=== PATIENT | male | born 2005 | race Hispanic/Latino ===

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

== ENCOUNTER 2025-04-24 10:40 | Emergency (ER) | payer OTHER, SELFPAY ==
[2025-04-24] MEDS ORDERED: Ondansetron PF 4 MG/2 ML Vial ONE (10:44)
[2025-04-24 11:12] LABS: ALT (SGPT) 14 U/L (Less than 45); AST (SGOT) 24 U/L (11-34); Albumin 4.4 g/dL (3.1-4.5); Alkaline Phosphatase 50 U/L (50-130); Anion Gap 18 mmol/L (10-20); BUN (Urea Nitrogen) 15 mg/dL (8.4-21.0); Bilirubin, Total 0.4 mg/dL (0.3-1.2); Calc. Creatinine Clearance 0 mL/min (70-130); Calcium 9.1 mg/dL (7.8-10.44); Carbon Dioxide 18 mmol/L (22-29); Chloride 106 mmol/L (98-107); Globulin 2.9 g/dL (2.4-3.5); Glucose 92 mg/dL (70-105); Potassium 3.2 mmol/L (3.5-5.1); Sodium 139 mmol/L (136-145)
[2025-04-24 11:20] LABS: Hematocrit 35.7 % (42.0-52.0); Hemoglobin 13.2 g/dL (14.0-18.0); Mean Corpuscular Hemoglobin 29.5 pg (25.0-35.0); Mean Corpuscular Volume 79.6 fl (78.0-98.0); Red Blood Cell (RBC) Count 4.48 mill/uL (4.00-5.20); White Blood Cell (WBC) Count 6.5 10x3/uL (4.8-10.8)
[2025-04-24 11:21] LABS: Platelet Count 220 10x3/uL (130-400)
[2025-04-24 11:22] LABS: Platelet Adequacy Comment Appears Adequate
== END 2025-04-24 12:11 | disposition short-term general hospital (02) ==
LOC: NAV ERS 10:40
DX: T21.23XA Burn of second degree of upper back, initial encounter (principal); T22.232A Burn of second degree of left upper arm, initial encounter; T23.222A Burn of second degree of single left finger (nail) except thumb, initial encounter; T31.0 Burns involving less than 10% of body surface; X08.8XXA Exposure to other specified smoke, fire and flames, initial encounter; Y99.0 Civilian activity done for income or pay
CPT/HCPCS: 36415; 71046; 80053; 85025; 90715; 96374; 96375; 96376; J2270; J2405; J7030; J7120